=== PATIENT | female | born 1950 | race Caucasian/White ===

== ENCOUNTER → 2019-09-01 | Outpatient (CLI) | payer OTHER | LOC: M.CT 07:58 | DX: I10 Essential (primary) hypertension (principal); Z79.899 Other long term (current) drug therapy ==

== ENCOUNTER 2021-01-03 10:39 | Emergency (ER) | payer MEDICARE ==
[~2021-01-03] VITALS: Ht 160 cm; Wt 63.5 kg
[2021-01-03] MEDS ORDERED: SULFASALAZINE500 M4 PO (11:00)
[2021-01-03] MEDS ORDERED: IMURAN 50MG TAB50 M1 PO (11:00)
[2021-01-03] MEDS ORDERED: NORVASC5 MG PO (11:00)
[2021-01-03] MEDS ORDERED: PLAQUENIL200 MG PO (11:00)
[2021-01-03 11:16] LABS: HEMATOCRIT 36.5 % (37.0-47.0); HEMOGLOBIN 12.3 gm/dL (12.0-15.0); MCH 28.4 pg (26.0-34.0); MCHC 33.6 g/dL (28.0-37.0); MCV 84.5 fL (80.0-100.0); MPV 10.1 fl. (7.2-11.1); RBC 4.32 mil/uL (4.20-5.00); RDW-CV 14.3 % (10.5-14.5); WBC 4.5 thou/uL (4.0-11.0)
[2021-01-03 11:17] LABS: CALCIUM 8.5 mg/dL (8.5-10.1); CREATININE 0.8 mg/dL (0.6-1.3); POTASSIUM 3.5 mmol/L (3.5-5.1)
[2021-01-03] MEDS ORDERED: PHENERGAN 25 MG25 M1 PO (11:48)
[2021-01-03 12:24] VITALS: BP 128/80
== END 2021-01-03 12:25 | disposition home or self-care (01) ==
LOC: M.ERS 10:39
PROVIDERS: Emergency Medicine Emergency Medical Services
DX: U07.1 COVID-19 (principal); I10 Essential (primary) hypertension

== ENCOUNTER → 2021-02-14 | Outpatient (CLI) | payer MEDICARE ==
[~2021-02-14] MED LIST: IMURAN 50MG TAB50 M1 PO; NORVASC5 MG PO; PHENERGAN 25 MG25 M1 PO; PLAQUENIL200 MG PO; SULFASALAZINE500 M4 PO
== END ==
LOC: M.MRI 11:30
PROVIDERS: ATTEND Internal Medicine
DX: R29.898 Other symptoms and signs involving the musculoskeletal system (principal); I25.10 Atherosclerotic heart disease of native coronary artery without angina pectoris